=== PATIENT | female | born 1950 | race Two or more races ===

== ENCOUNTER 2022-07-19 10:14 | Outpatient (CLI) | payer OTHER | END 2022-07-19 10:25 | disposition home or self-care (01) | LOC: MAMO-SONO 10:14 | PROVIDERS: ATTEND Internal Medicine | DX: Z12.31 Encounter for screening mammogram for malignant neoplasm of breast (principal); N60.39 Fibrosclerosis of unspecified breast ==

== ENCOUNTER → 2024-10-04 11:22 | Outpatient (CLI) | payer OTHER ==
[2024-10-04 12:56] LABS: HEMATOCRIT 32.9 % (36.0-45.00); HEMOGLOBIN 9.8 g/dL (12.0-15.00); MEAN CORPUSCULAR HEMOGLOBIN 20.2 pg (27.00-32.0); MEAN CORPUSCULAR HGB CONC 29.9 g/dl (32.0-36.0); PLATELET COUNT 199 K/uL (150-450); RED BLOOD COUNT 4.87 M/uL (4.00-6.00); RED CELL DISTRIBUTION WIDTH 20.3 % (11.5-14.5)
[2024-10-04 13:28] LABS: MYCOPLASMA PNEUMONIAE IGM NON REACTIVE (NO REACTIVE)
[2024-10-04 14:38] LABS: MEAN CELL VOLUME 67.7 fL (80.00-100.00)
== END | disposition home or self-care (01) ==
LOC: LAB 11:22
PROVIDERS: ATTEND Obstetrics & Gynecology
DX: A49.3 Mycoplasma infection, unspecified site (principal); J09.X1 Influenza due to identified novel influenza A virus with pneumonia; A90 Dengue fever [classical dengue]

== ENCOUNTER 2024-10-16 11:35 | Outpatient (CLI) | payer OTHER | END 2024-10-16 11:41 | disposition home or self-care (01) | LOC: MAMO-SONO 11:35 | DX: N64.4 Mastodynia (principal); Z12.31 Encounter for screening mammogram for malignant neoplasm of breast ==

== ENCOUNTER 2024-10-16 13:21 | Outpatient (CLI) | payer OTHER | END 2024-10-16 13:25 | disposition home or self-care (01) | LOC: NUCLEAR 13:21 | DX: M81.0 Age-related osteoporosis without current pathological fracture (principal) ==